=== PATIENT | male | born 1945 | race Caucasian/White ===

== ENCOUNTER → 2018-01-12 | Outpatient (CLI) | payer MEDICARE ==
[~2018-01-12] MED LIST: ASPI1TAB57 PO; ATOR20TA15 PO; CENTCHW3 P-ARTICULR; CLAR10CA3 PO; CLOP75TA PO; LOSA100T3 PO
[2018-01-12 14:13] LABS: AUTOMATED NEUTROPHIL # 4.7 TH/MM3 (1.8-7.7); BASOPHIL % 0.6 % (0.0-2.0); EOSINOPHIL # 0.1 TH/MM3 (0-0.4); HEMATOCRIT 42.8 % (39.0-51.0); HEMOGLOBIN 14.1 GM/DL (13.0-17.0); LYMPH % 13.8 % (9.0-44.0); LYMPHOCYTE # 0.9 TH/MM3 (1.0-4.8); MEAN CELL VOLUME 80.3 FL (80.0-100.0); MEAN CORPUSCULAR HEMOGLOBIN 26.5 PG (27.0-34.0); MEAN PLATELET VOLUME 7.8 FL (7.0-11.0); MONO % 9.1 % (0.0-8.0); MONOCYTE # 0.6 TH/MM3 (0-0.9); NEUT % 74.5 % (16.0-70.0); PLATELET COUNT 184 TH/MM3 (150-450); RED BLOOD COUNT 5.33 MIL/MM3 (4.50-5.90); RED CELL DISTRIBUTION WIDTH 18.2 % (11.6-17.2); WHITE BLOOD COUNT 6.3 TH/MM3 (4.0-11.0)
[2018-01-12 14:16] LABS: PROTHROMBIN TIME - PATIENT 10.2 SEC (9.8-11.6)
[2018-01-12 14:16] LABS: BILIRUBIN, URINE NEG (NEG); BLOOD, URINE NEG (NEG); GLUCOSE,URINE NEG (NEG); KETONE, URINE NEG (NEG); NITRITE,URINE NEG (NEG); PH, URINE 6.5 (5.0-8.5); URINE COLOR LIGHT-YELLOW (YELLW/STRAW); URINE LEUKOCYTE ESTERASE NEG (NEG)
[2018-01-12 14:31] LABS: ALBUMIN 3.7 GM/DL (3.4-5.0); BICARBONATE 30.9 MEQ/L (21.0-32.0); BLOOD UREA NITROGEN 18 MG/DL (7-18); CALCIUM 9.1 MG/DL (8.5-10.1); CHLORIDE 104 MEQ/L (98-107); CREATININE 1.07 MG/DL (0.60-1.30); GLOMERULAR FILTRATION RATE 68 ML/MIN (>89); GLUCOSE,FASTING 106 MG/DL (74-99); SODIUM (NA) 141 MEQ/L (136-145)
[2018-01-12 14:33] LABS: ALT (GPT) 47 U/L (12-78); AST (GOT) 35 U/L (15-37)
[2018-01-12 14:35] LABS: ALKALINE PHOSPHATASE 101 U/L (45-117); TOTAL BILIRUBIN ADULT 0.5 MG/DL (0.2-1.0); TOTAL PROTEIN 7.4 GM/DL (6.4-8.2)
--- NOTE | 2018-01-13 16:07 | EKG ---
Date Performed: 01/12/2018 Time Performed: 13:07:15 PTAGE: 72 years EKG: Sinus rhythm NONSPECIFIC ST & T-WAVE ABNORMALITY BORDERLINE ECG NO PREVIOUS TRACING DOCTOR: Saul Razo Interpretating Date/Time 01/13/2018 16:06:06
== END ==
LOC: CPRE 12:51
PROVIDERS: ATTEND Orthopaedic Surgery
DX: Z01.812 Encounter for preprocedural laboratory examination (principal); Z01.810 Encounter for preprocedural cardiovascular examination; M79.609 Pain in unspecified limb; S83.241D Other tear of medial meniscus, current injury, right knee, subsequent encounter
CPT/HCPCS: 36415; 80053; 81001; 85025; 85610; 85730; 93005

== ENCOUNTER → 2018-01-16 | Day surgery (SDC) | payer MEDICARE ==
--- NOTE | 2018-01-15 07:49 | MH ---
cc: Charles Yates MD DATE OF ADMISSION: 01/16/2018 ADMITTING DIAGNOSIS: Medial meniscus tear of the right knee, effusion right knee, pain right knee. HISTORY OF PRESENT ILLNESS: The patient is a 72-year-old white male who has had a rather lengthy history of pain involving his right knee. He had initially presented to the office in 09/2012 complaining of right knee pain and at that time he was diagnosed as having synovitis for which he was treated conservatively and did reasonably well over the years thereafter. In May of this past year, he underwent aortic valve replacement and as part of his rehabilitation postoperatively, he was conforming to a walking exercise program, distances of approximately 3-5 miles daily, 7 days per week. He has also been playing golf and in this regard, he began to experience soreness generalized about his right knee for which he presented to the office in November of this year and at that time, his x-ray studies were without evidence of any acute bony abnormality. The patient was diagnosed as having a tenosynovitis with associated pain for which he was encouraged to continue with conservative management, which included topical application of Aspercreme versus Biofreeze. The patient reporting that he was taking Plavix for his history of heart disease. He was followed on an outpatient basis thereafter, describing some lingering discomfort, for which he did subsequently receive an intraarticular steroid injection. He was able to appreciate an initial trend of improvement and had been doing reasonably well until he fell aggravating his knee symptoms and subsequently underwent an MRI scan, which identified a radial tear of the medial meniscus with mild extrusion. The lateral meniscus being unremarkable. There was a moderate joint effusion. The patient returned to the office in followup disposition and at that time, the findings of his scan were reviewed and treatment options discussed. The pros and cons of continuing with conservative management versus operative intervention that would involve arthroscopic surgery were outlined. Emphasis was made regarding the fact that the decision to proceed with surgery would be left entirely to the patient's discretion. The patient felt that his ongoing symptoms were of such a degree and especially limiting his daily routine that he was desirous of proceeding in this direction and in compliance with his wishes, he was scheduled for admission in order that the above be accomplished. PAST MEDICAL HISTORY, HOSPITALIZATIONS AND SURGERIES: Have included cardiac bypass surgery. Subsequent aortic valve replacement by TAVR surgery and colonoscopy. MEDICAL ILLNESSES: Include his heart disease, hypertension and elevated cholesterol. CURRENT MEDICATIONS: Plavix 75 mg daily, losartan/hydrochlorothiazide 12.5-100 daily, Centrum Silver one daily, Claritin 10 mg daily, atorvastatin 20 mg in the p.m. and 81 mg aspirin tablet daily. ALLERGIES: THE PATIENT DENIES ANY KNOWN DRUG ALLERGIES. REVIEW OF SYSTEMS: He does wear glasses. Denies headache, seizure, or syncope. He has occasional sinus congestion. No epistaxis. Diminished auditory acuity for which hearing aids are utilized. No tinnitus. No bleeding gums or dysphagia. Denies cough, shortness of breath, upper respiratory infection, pneumonia, or tuberculosis. No angina. He is medically managed for hypertension and being status post aortic valve replacement. Appetite is good. Bowel movements are regular. No hepatitis, gallbladder disease, ulcers. There is a positive history of hemorrhoids. No urinary tract infection, no kidney stones. Bilateral finger fractures treated nonoperatively. No psychiatric illness. His remaining review of systems is unremarkable and noncontributory. FAMILY HISTORY: The patient has been approximately 50 years. His is 71 years of age, in good health. No children. FAMILY HISTORY: Positive for hypertension, lung cancer, heart disease and Alzheimer's disease. 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 He completed 2 years of college education. He denies active use of tobacco since 1974, but had been a 2-3 pack per day user for at least 10 years prior to that time. Ethanol consumption on a social basis. PHYSICAL EXAMINATION: VITAL SIGNS: Height 6 feet, weight 199 pounds. GENERAL: This is an alert, oriented, and responsive 72-year-old white male who sits quietly upon the examination table in no obvious distress. HEAD, EARS, EYES, NOSE, AND THROAT: Pupils are equal, round and reactive to light. Extraocular movements full. Sclerae are clear. External nares clear. External auditory canals clear. Dental intact. Mucous membranes pink and moist. Pharynx clear. NECK: Supple. Active range of motion. No appreciable pain. Carotid pulse is palpable bilaterally. Trachea midline. Thyroid without enlargement. LUNGS: Clear to auscultation and percussion. No CVA tenderness. No discomfort throughout the dorsolumbar spine. HEART: Regular rhythm. No murmur or gallop. ABDOMEN: Soft, nontender, bowel sounds present. RECTAL: Per primary care physician. EXTREMITIES: Right knee medial joint line tenderness, without palpable deformity. Apprehension and compression sign negative. Slight limitation of mobility at the extreme of flexion with mild pain elicited. No significant crepitation. No collateral ligamentous laxity. Selena test and drawer sign negative. Pivot shift and Farhan sign positive for medial compartment pain. Straight leg raising unremarkable at 80 degrees. Independent gait. NEUROLOGIC: Cranial nerves 2-12 grossly intact, excluding diminished auditory acuity. PLAN: Arthroscopic surgery and possible arthrotomy of the right knee. The nature of the planned surgical procedure, the potential complications and risks associated, the expectations of surgery and the consent form were thoroughly reviewed with the patient in the presence of his prior to admission to the hospital. Mikael has indicated a full understanding regarding all of the above and given consent to proceed with treatment as outlined. Medical evaluation and clearance for surgery will be completed by his primary care physician, Dr. Beck, cardiology clearance per Dr. Stephen. MD KELLY Boles/TL/rr , 12:09 PM , 01:09 PM
[~2018-01-16] VITALS: Ht 182.9 cm; Wt 90.5 kg
[~2018-01-16] MED LIST changes: +ACETAMINOPHEN/HYDROcodone 325 MG/5 MG TAB PO PRN; +CEFAZOLIN INJ 2,000 MG in SODIUM CHLORIDE 0.9% INJ 100 ML IV SCH; +CHLORHEXIDINE GLUCONATE 2 % 1 PACK (2 CLOTHS) TOPICAL PRN; +DO NOT ADM ANY ANTICOAGULANT DRUGS PRN; +LACTATED RINGER'S 1000 ML INJ 1,000 ML IV ONE; +LACTATED RINGER'S 1000 ML IV PRN; +LIDOCAINE HCL 2% 50 ML VIAL ONE; +METOPROLOL TARTRATE 25 MG TAB PO PRN; +MORPHINE SULFATE 8 MG/ML INJ IM PRN; +ONDANSETRON HCL 4 MG/2 ML VIAL IV ONE; +PHENYLEPH/NS 1000 MCG/10 ML SYR IV ONE; +POVIDONE IODINE 5% (ANTISEPSIS KIT) 4 APPLICATIONS EACH NARE PRN; +PROMETHAZINE INJ 25 MG/ML VIAL IM PRN; +PROPOFOL 200 MG/20 ML AMP IV ONE; +SODIUM CHLORID 0.9% 500 ML IV PRN; +TRIAMCINOLONE ACETONIDE/PF 40 MG/ML OPTH VIAL ONE; +ePHEDrine/NS 25 MG/5 ML SYRINGE IV ONE
--- NOTE | 2018-01-16 08:44 | MP ---
cc: Charles Yates MD DATE OF OPERATION: 01/16/2018 PREOPERATIVE DIAGNOSIS: Medial meniscus tear of the right knee, effusion right knee and pain of the right knee. POSTOPERATIVE DIAGNOSIS: Medial meniscus tear of the right knee, effusion right knee and pain of the right knee including osteoarthritis, right knee. PROCEDURE PERFORMED: Partial medial meniscectomy right knee with chondroplasty of the medial compartment. SURGEON: Charles Yates MD ANESTHESIA: General by LMA. FORMAT: Following the induction of satisfactory general anesthesia by LMA insertion as completed per the Department of Anesthesia, examination of the right knee did reveal generalized fullness about the knee consistent with an intra-articular effusion. There was satisfactory mobility of the knee joint without associated ligamentous instability. The extremity proper was positioned into the surgical garment assembler knee sparks, prepped with Betadine solution and draped into a sterile field in the routine manner. Prior to initiation of the actual procedure, the standard time-out protocol was completed. All parameters were appropriately addressed and confirmed by operating room personnel. Arthroscopic instrumentation was introduced through a stab wound utilizing cannula with sharp and blunt trocar, the inflow irrigation by way of a medial suprapatellar portal, the arthroscope through a lateral parapatellar portal, probe through a medial parapatellar portal. Examination of the suprapatellar pouch revealed a mild degree of reactive synovitis, mild to moderate articular irregularity along the patellar facets was appreciated consistent with localized chondromalacia. Within the medial compartment, a degenerative tear involving the posterior horn of the medial meniscus was readily identified. There were associated degenerative changes throughout the medial compartment involving both femoral condyle and tibial plateau. A localized articular defect was appreciated at approximately the 3 o'clock position adjacent to the margin of the medial meniscus. Proliferative synovium extended into the intercondylar region. The anterior cruciate ligament was identified and noted to be intact. Examination of the lateral compartment was unremarkable. Given the continuity of the articular surfaces of the femoral condyle and tibial plateau, the lateral meniscus appeared to be uniform throughout. Attention was redirected to the medial compartment. Utilizing a 3.8 mm shaver resector, a partial medial meniscectomy was accomplished, as well as a generalized debridement and chondroplasty of both femoral condyle and tibial plateau. Limited debridement throughout the intercondylar region of proliferative synovium, as well as additional limited resection involving the patellofemoral articulation. Upon completion of same, the joint space was thoroughly lavaged and thereafter suctioned dry. An intra-articular Kenalog/lidocaine injection was completed. Portal sites were reapproximated with Steri-Strips over which Xeroform gauze and a bulky dry sterile dressing were placed. Anesthesia was discontinued. The patient thus transferred to a hospital stretcher, and returned to the recovery room in satisfactory condition, having tolerated his operative procedure well. ESTIMATED BLOOD LOSS: Less than 5 mL. Charles Yates MD NBS/DL , 08:29 AM , 08:43 AM
[2018-01-16 10:10] VITALS: BP 128/75; PULSE 67; RESP 20; TEMP 97.9; O2SAT 98
== END | disposition home or self-care (01) ==
LOC: HSDC 05:09 → EDUNIT# 08:30
PROVIDERS: ATTEND Orthopaedic Surgery
DX: M23.221 Derangement of posterior horn of medial meniscus due to old tear or injury, right knee (principal); M94.261 Chondromalacia, right knee; M65.861 Other synovitis and tenosynovitis, right lower leg; M25.461 Effusion, right knee; I10 Essential (primary) hypertension; I51.9 Heart disease, unspecified; E78.00 Pure hypercholesterolemia, unspecified; Z79.02 Long term (current) use of antithrombotics/antiplatelets; Z95.1 Presence of aortocoronary bypass graft; Z95.2 Presence of prosthetic heart valve
CPT/HCPCS: 01400; 29881; J0690; J2370; J2405; J3010; J3300; J7120